=== PATIENT | female | born 1990 | race American Indian/Alaskan Native ===

== ENCOUNTER 2019-02-18 12:27 | Emergency (ER) | payer SELFPAY ==
[2019-02-18 12:52] VITALS: BP 117/54
--- NOTE | 2019-02-18 12:55 | Event Note ---
ED Screening Note Date of service: 02/18/19 Time: 12:49 ED Screening Note: This is a 28 y.o. F. that presents to the ER with nausea and vomiting 3-4 days. LMP 12/16/2018, A0 Reports unable to keep anything down. + urinary frequency, urgency, n/v - abdominal pain, chest pain, fever, chills, hematuria, and vaginal discharge This initial assessment/diagnostic orders/clinical plan/treatment(s) is/are subject to change based on patients health status, clinical progression and re-assessment by fellow clinical providers in the ED. Further treatment and workup at subsequent clinical providers discretion. Patient/guardian urged not to elope from the ED as their condition may be serious if not clinically assessed and managed. Initial orders include: Labs
[2019-02-18 13:45] LABS: Bacteria,Urine 3+ /HPF (Negative); Bilirubin,Urine NEG (Negative); Blood,Urine NEG (Negative); Color,Urine Amber (Yellow); Mucus,Urine 3+ /HPF; Urobilinogen,Urine < 2.0 mg/dL (<2.0)
[2019-02-18 13:50] LABS: HCG Qualitative,Urine Positive (Negative)
[2019-02-18 14:04] LABS: Hematocrit 41.2 % (30.3-42.9); Hemoglobin 13.6 gm/dl (10.1-14.3); Mean Corpuscular HGB Conc 33 % (30-34); Mean Corpuscular Volume 94 fl (79-97); Platelet Count 174 K/mm3 (140-440); Red Blood Count 4.38 M/mm3 (3.65-5.03); Red Cell Distribution Width 13.6 % (13.2-15.2)
[2019-02-18 15:07] LABS: Alanine Aminotransferase 37 units/L (7-56); Albumin 4.3 g/dL (3.9-5); BUN/Creatinine Ratio 17; Blood Urea Nitrogen 10 mg/dL (7-17); Hemolysis Index 47
== END 2019-02-18 16:38 | disposition left against medical advice (07) ==
LOC: ED 12:27
DX: R53.1 Weakness (principal); Z53.21 Procedure and treatment not carried out due to patient leaving prior to being seen by health care provider
CPT/HCPCS: 36415; 80053; 81001; 81025; 85027

== ENCOUNTER 2019-02-19 09:16 | Emergency (ER) | payer MEDICAID ==
[2019-02-19 10:31] LABS: Bacteria,Urine 1+ /HPF (Negative); Mucus,Urine 3+ /HPF
[2019-02-19 10:33] LABS: HCG Qualitative,Urine Positive (Negative)
[2019-02-19 10:43] LABS: Bilirubin,Urine NEG (Negative); Blood,Urine NEG (Negative); Color,Urine Amber (Yellow); Urobilinogen,Urine < 2.0 mg/dL (<2.0)
[2019-02-19] MEDS ORDERED: METOCLOPRAMIDE 10 MG TAB PO ONE (10:57)
--- NOTE | 2019-02-19 11:08 | Emergency Department Report ---
HPI - General Chief Complaint: Nausea/Vomiting/Diarrhea Time Seen by Provider: 02/19/19 10:36 - HPI HPI: 28-year-old Clarissa female presents to the emergency department with a complaint of a few weeks of nausea and vomiting. The patient also says that her last menstrual cycle was December 16 and therefore has not had a period in about 2 months. She has not taken any type of home test. She denies any vaginal bleeding, or discharge, but does have some dysuria. She complains of some lower abdominal and/or pelvic cramping pains. Prior to checking the patient for here today, the patient is . [facility]. She has not taken anything for her symptoms prior to presentation today. ED Past Medical Hx - Past Medical History Previous Medical History?: No - Surgical History Past Surgical History?: No - Social History Smoking Status: Never Smoker Substance Use Type: None - Medications Home Medications: Home Medications Medication Instructions Recorded Confirmed Last Taken Type Metoclopramide [Reglan] 10 mg PO TID PRN #20 tab 02/19/19 Unknown Rx Vit-Fe Fumar-FA [ 1 tab PO QDAY #30 tablet 02/19/19 Unknown Rx Vitamin] ED Review of Systems ROS: Stated complaint: VOMITING Other details as noted in HPI Comment: All other systems reviewed and negative Constitutional: denies: chills, fever Gastrointestinal: abdominal pain, nausea, vomiting Genitourinary: abnormal menses. denies: dysuria, discharge Musculoskeletal: denies: back pain, arthralgia Physical Exam - Physical Exam Vital Signs: Vital Signs 02/19/19 09:38 Temperature 99 F Pulse Rate 86 Respiratory 18 Rate Blood Pressure 136/97 O2 Sat by Pulse 97 Oximetry Physical Exam: GENERAL: The patient is well-developed well-nourished. HENT: Normocephalic. Atraumatic. Patient has moist mucous membranes. EYES: Extraocular motions are intact. NECK: Supple. Trachea is midline. CHEST/LUNGS: Clear to auscultation. There is no respiratory distress noted. HEART/CARDIOVASCULAR: Regular. There is no tachycardia. There is no murmur. ABDOMEN: Abdomen is soft, nontender. Patient has normal bowel sounds. There is no abdominal distention. SKIN: Skin is warm and dry. NEURO: The patient is awake, alert, and oriented. The patient is cooperative. The patient has no focal neurologic deficits. Normal speech. MUSCULOSKELETAL: There is no tenderness or deformity. There is no evidence of acute injury. ED Course Vital Signs 02/19/19 09:38 Temperature 99 F Pulse Rate 86 Respiratory 18 Rate Blood Pressure 136/97 O2 Sat by Pulse 97 Oximetry ED Medical Decision Making - Radiology Data Radiology results: report reviewed ultrasound shows a live intrauterine at about 8 weeks and 6 days. No obvious abnormalities. - Medical Decision Making This patient presents to the emergency department with some chronic nausea and vomiting, 2 months past due for her menstrual cycle. Positive test. Urinalysis is unremarkable. ultrasound shows live intrauterine at almost 9 weeks. She was given a dose of Reglan and upon reevaluation she has improvement in the nausea and vomiting. Able to pass an oral challenge. Has good [facility] [facility] follow-up with [facility]. Started on vitamins and given a prescription for Reglan. She will return to the ER with any worsening of her symptoms or any acute distress. - Differential Diagnosis , miscarriage, hyperemesis gravidarum, UTI Critical Care Time: No Critical care attestation.: If time is entered above; I have spent that time in minutes in the direct care of this critically ill patient, excluding procedure time. ED Disposition Clinical Impression: Qualifiers: Weeks of gestation: 8 weeks Qualified Code(s): Z3A.08 - 8 weeks gestation of Nausea & vomiting Qualifiers: Vomiting type: unspecified Vomiting Intractability: unspecified Qualified Cod e(s): R11.2 - Nausea with vomiting, unspecified Disposition: DC-01 TO HOME OR SELFCARE Is pt being admited?: No Condition: Stable Instructions: (ED), Acute Nausea and Vomiting (ED) Additional Instructions: Please follow-up with your [facility] in the next few days. Increase your oral rehydration. Return to the emergency Department with any worsening of your symptoms, development of vaginal bleeding or sharp pelvic pains, or with any acute distress. I am starting you on vitamins. Do not take any other medications unless prescribed or recommended by a physician. Prescriptions: Vit-Fe Fumar-FA [ Vitamin] 1 tab PO QDAY #30 tablet Metoclopramide [Reglan] 10 mg PO TID PRN #20 tab PRN Reason: Nausea Referrals: [facility] [Provider Group] - 2-3 Days Time of Disposition: 13:41
[2019-02-19 13:49] VITALS: BP 134/78
--- NOTE | 2019-02-21 07:57 | Ultrasound Report ---
ULTRASOUND OB LESS THAN 14 WEEKS FETUS ULTRASOUND OB TRANSVAGINAL HISTORY: Pelvic pain during COMPARISON: None. TECHNIQUE: Routine transabdominal OB ultrasound performed. FINDINGS: Uterus: Mildly enlarged measuring 11.3 x 8.0 x 9.3 cm. Gestational Sac: Well-defined oval shape and intrauterine in location. Yolk Sac: Normal in appearance. Fetus/Embryo: [place]-rump length of 2.2 cm, corresponding to an estimated gestational age of 8 weeks 6 days. Embryonic/ anatomy is too small for evaluation. Embryonic/ cardiac activity: 166bpm Placenta: Too small for evaluation. Amniotic fluid volume: Subjectively appropriate for gestational age. Ovaries: The right ovary is normal in size and appearance with normal blood flow, measuring 2.7 x 1. 0 x 2.8 cm. The left ovary is normal in size and appearance with normal blood flow, measuring 3.7 x 2.1 x 3.3 cm. Hypoechoic space-occupying mass in the left ovary with peripheral vascularity is most likely the corpus luteum. Additional findings: None. IMPRESSION Early live intrauterine . Signer Name: Clifton Toro Jr, MD Signed: 02/19/2019 12:46 PM Workstation Name: [id number]
--- NOTE | 2019-02-26 11:01 | Ultrasound Report ---
ULTRASOUND OB LESS THAN 14 WEEKS FETUS ULTRASOUND OB TRANSVAGINAL HISTORY: Pelvic pain during COMPARISON: None. TECHNIQUE: Routine transabdominal OB ultrasound performed. FINDINGS: Uterus: Mildly enlarged measuring 11.3 x 8.0 x 9.3 cm. Gestational Sac: Well-defined oval shape and intrauterine in location. Yolk Sac: Normal in appearance. Fetus/Embryo: [place]-rump length of 2.2 cm, corresponding to an estimated gestational age of 8 weeks 6 days. Embryonic/ anatomy is too small for evaluation. Embryonic/ cardiac activity: 166bpm Placenta: Too small for evaluation. Amniotic fluid volume: Subjectively appropriate for gestational age. Ovaries: The right ovary is normal in size and appearance with normal blood flow, measuring 2.7 x 1. 0 x 2.8 cm. The left ovary is normal in size and appearance with normal blood flow, measuring 3.7 x 2.1 x 3.3 cm. Hypoechoic space-occupying mass in the left ovary with peripheral vascularity is most likely the corpus luteum. Additional findings: None. IMPRESSION Early live intrauterine . Signer Name: Clifton Toro Jr, MD Signed: 02/19/2019 12:46 PM Workstation Name: [id number]
== END 2019-02-19 13:49 | disposition home or self-care (01) ==
LOC: ED 09:16
DX: O21.8 Other vomiting complicating pregnancy (principal); Z3A.08 8 weeks gestation of pregnancy
CPT/HCPCS: 36415; 76801; 76817; 81001; 81025; 84703

== ENCOUNTER 2019-09-22 17:41 | Observation (INO) | payer MEDICAID ==
[2019-09-22] MEDS ORDERED: DOCUSATE SODIUM 100 MG CAP PO PRN (23:09)
[2019-09-22] MEDS ORDERED: ACETAMINOPHEN 325 MG TAB PO PRN (23:09)
[2019-09-22] MEDS ORDERED: BUTORPHANOL 2 MG/1 ML INJ IV PRN (23:17)
--- NOTE | 2019-09-22 23:22 | History and Physical Report ---
History of Present Illness Date of examination: 09/22/19 Date of admission: 09/22/19 20:37 Chief complaint: Contractions History of present illness: 28 year old presents to L&D complaining of contractions every 2-3 minutes. Patient denies LOF or vaginal bleeding. Pt. reports active movement. Patient received care at [facility] but records are now available. LMP 12/19/2018. EDC 09/25/2019. 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 labs are as follows: O+, antibody screen negative, rubella immune, HIV negative, hepatitis B surface antigen negative, RPR nonreactive, gonorhea negative, chlamydia negative, trichomonas negative, 1 hour sugar test 94, GBS unknown. Past History Past Medical History: no pertinent history Past Surgical History: no surgical history [facility] History: abnormal PAP smear, chlamydia (history of chlamydia in the past, treated and cured), herpes (Patient denies lesions or prodromal symptoms and no lesions seen upon ). denies: gonorrhea, hepatitis B, hepatitis C, HIV, syphilis, trichomonas Family/Genetic History: diabetes, heart disease, other (arthritis, seizure disorder) Social history: lives with family, full code. denies: smoking, alcohol abuse, prescription drug abuse, IV drug use - Obstetrical History Expected Date of Delivery: 09/25/19 Actual Gestation: 39 Week(s) 4 Day(s) : 6 Para: 5 Hx # Term Pregnancies: 5 Number of Pregnancies: 0 Spontaneous Abortions: 0 Induced : 0 Number of Living Children: 5 Medications and Allergies Allergies Allergy/AdvReac Type Severity Reaction Status Date / Time No Known Allergies Allergy Unverified 02/18/19 12:30 Home Medications Medication Instructions Recorded Confirmed Last Taken Type Metoclopramide [Reglan] 10 mg PO TID PRN #20 tab 02/19/19 Unknown Rx Vit-Fe Fumar-FA [ 1 tab PO QDAY #30 tablet 02/19/19 Unknown Rx Vitamin] Active Meds: Active Medications Acetaminophen (Tylenol) 650 mg PO Q4H PRN PRN Reason: Pain MILD(1-3)/Fever >100.5/MANUEL Docusate Sodium (Colace) 100 mg PO Q12H PRN PRN Reason: Constipation Multivitamins/Iron/Calcium ( Vitamin) 1 each PO QDAY [facility], [facility] Review of Systems All systems: negative (contractions) - Vital Signs Vital signs: Vital Signs Pulse BP 87 133/88 09/22/19 17:55 09/22/19 17:55 Temp Pulse Resp BP Pulse Ox 98.4 F 75 18 103/56 09/22/19 22:46 09/22/19 22:50 09/22/19 22:46 09/22/19 22:50 - Physical Exam Abdomen: Positive: normal appearance, soft. Negative: distention, tenderness, guarding, rigidity Genitourinary (Female): Positive: normal external genitalia, normal perenium. Negative: perineal/vulvar lesions Vagina: Positive: normal moisture Uterus: Positive: enlarged. Negative: tender Anus/Rectum: Positive: normal perianal skin Extremities: Positive: normal - Obstetrical FHR: category 1 Cervical Dilatation: 3.5 Cervical Effacement Percentage: 50 station: -3 Uterine Contraction Pattern: Irregular Uterine Contraction Intensity: Mild Results All other labs normal. Assessment and Plan A: at 39 weeks, 4 days gestation. Rule out labor. Grand multipara. GBS unknown. P: Admit for 23 hour observation. EFM. Recheck cervix. Consuted with Dr. Pichardo re: this patient and she states OK to observe patient overnight.
[2019-09-23 06:35] VITALS: BP 99/54
--- NOTE | 2019-09-23 06:48 | Event Note ---
Date: 09/23/19 Contractions have spaced considerably. Patient denies leaking of fluid or vaginal bleeding. Patient reports active movement. SVE 3.5/60/-3. Patient to be discharged home. Advised patient to perform daily movement counting. Advised patient to follow up at [facility] office tomorrow 09/24/2019. Warning signs discussed with pt. Advised pt. to return promptly if labor or any warning signs. Patient voiced understanding of instructions.
--- NOTE | 2019-09-23 06:54 | Discharge Summary ---
Providers - Providers Date of Admission: 09/22/19 20:37 Date of discharge: 09/23/19 Attending physician: MOY BRIGHT MD Primary care physician: MOY BRIGHT MD Hospitalization Reason for admission: observation, other (R/O labor, grand multipara) Hospital course: Normal hospital course. Patient was found to be in false labor as, after observation, her contractions spaced and cervix was essentially unchanged upon exam this morning. Condition at discharge: Good Disposition: DC-01 TO HOME OR SELFCARE - Discharge Diagnoses (1) False labor after 37 weeks of gestation without delivery Status: Acute (2) Grand multipara Status: Acute Plan - Provider Discharge Summary Activity: routine Diet: routine Instructions: routine Additional instructions: Count movements daily. Follow up at [facility] in 1 day. Return promptly if signs of labor, decreased movement, leaking of fluid, or vaginal bleeding. - Follow up plan Follow up: MOY BRIGHT MD [Primary Care Provider] - 09/24/19
[2019-09-23] MEDS ORDERED: PRENATAL VIT27-FE FUMARATE-FOLIC ACID VIT TAB PO SCH (10:00)
[2019-09-23] MEDS ORDERED: valACYclovir 500 MG TAB PO SCH (10:00)
== END 2019-09-23 06:58 | disposition home or self-care (01) ==
LOC: APU 17:41 → TRG 17:41 → LD 20:37
PROVIDERS: ADMIT Obstetrics & Gynecology; ATTEND Obstetrics & Gynecology
DX: O47.1 False labor at or after 37 completed weeks of gestation (principal); O09.43 Supervision of pregnancy with grand multiparity, third trimester; Z3A.39 39 weeks gestation of pregnancy
CPT/HCPCS: G0378 ×2

== ENCOUNTER 2020-12-25 13:00 | Inpatient (IN) | payer MEDICAID ==
[2020-12-25] MEDS ORDERED: BUTORPHANOL 2 MG/1 ML INJ IV PRN (14:56)
[2020-12-25] MEDS ORDERED: TERBUTALINE 1 MG/1 ML INJ SUB-Q PRN (14:56)
[2020-12-25] MEDS ORDERED: fentaNYL 100 MCG/2 ML INJ IV PRN (14:56)
[2020-12-25] MEDS ORDERED: AMPICILLIN/NS 2 GM/100 ML 2 GM/100 ML BAG IV ONE (14:56)
[2020-12-25] MEDS ORDERED: LIDOCAINE (2%) 20 MG/1 ML VIAL 20 ML MDV INFILTRATI ONE (14:56)
[2020-12-25] MEDS ORDERED: CARBOPROST TROMETHAMINE 250 MCG/1 ML INJ IM PRN (14:56)
[2020-12-25] MEDS ORDERED: MINERAL OIL 30 ML ORAL LIQD PO PRN (14:56)
[2020-12-25] MEDS ORDERED: miSOPROStol 200 MCG TAB PR PRN (14:56)
[2020-12-25] MEDS ORDERED: ePHEDrine SULFATE 50 MG/1 ML INJ IV PRN ×2 (14:56→17:53)
[2020-12-25] MEDS ORDERED: OXYTOCIN 10 UNIT/1 ML INJ IM PRN (14:56)
[2020-12-25] MEDS ORDERED: METHYLERGONOVINE MALEATE 0.2 MG/ML VIAL IM PRN (14:56)
[2020-12-25] MEDS ORDERED: ACETAMINOPHEN 325 MG TAB PO PRN (14:56)
[2020-12-25] MEDS ORDERED: LOPERAMIDE 2 MG CAP PO PRN (14:56)
[2020-12-25] MEDS ORDERED: OXYTOCIN DRIP 30 UNITS/500 ML BAG IV SCH ×4 (15:00→19:00)
--- NOTE | 2020-12-25 15:02 | History and Physical Report ---
History of Present Illness Date of examination: 12/25/20 Date of admission: 12/25/2020 Chief complaint: Leaking of water from vagina; contractions History of present illness: 30 year old presents to L&D with complaint of leaking of clear water from vagina since 1:30 PM today. Patient also reports contractions. Patient received care from [facility] and records are available. LMP 03/24/2020. EDC 12/29/2020. significant for the following: gonorrhea treated during and cured but ANTONIO result not on chart (will request when office opens in the morning); GBS unknown, HSV 2 positive (has been on Valtrex suppression and patient denies lesions or prodromal symptoms); late entry to care and missed visits. labs are as follows: O+, antibody screen negative, rubella immune, hepatitis B surface antigen negative, HIV negative, RPR nonreactive, gonorrhea positive, chlamydia negative, trichomonas negative, AFP negative, GBS unknown, no sugar test result on chart. 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 denies: smoking, alcohol abuse, prescription drug abuse, IV drug use - Obstetrical History Expected Date of Delivery: 12/29/20 Actual Gestation: 39 Week(s) 3 Day(s) : 7 Para: 6 Hx # Term Pregnancies: 6 Number of Pregnancies: 0 Spontaneous Abortions: 0 Induced : 0 Number of Living Children: 6 Medications and Allergies Allergies Allergy/AdvReac Type Severity Reaction Status Date / Time No Known Allergies Allergy Verified 12/25/20 16:37 Home Medications Medication Instructions Recorded Confirmed Last Taken Type Metoclopramide [Reglan] 10 mg PO TID PRN #20 tab 02/19/19 10/06/19 10/05/19 Rx Vit-Fe Fumar-FA [ 1 tab PO QDAY #30 tablet 02/19/19 10/06/19 10/06/19 Rx Vitamin] 1 tab Active Meds: Active Medications Acetaminophen (Acetaminophen 325 Mg Tab) 650 mg PO Q4H PRN PRN Reason: Pain, Mild (1-3) Butorphanol Tartrate (Butorphanol 2 Mg/1 Ml Inj) 1 mg IV Q2H PRN PRN Reason: Pain, Moderate(4-6) LABOR PAIN Carboprost Tromethamine (Carboprost Tromethamine 250 Mcg/1 Ml Inj) 250 mcg IM ONCE PRN PRN Reason: Uterine Bleeding Ephedrine Sulfate (Ephedrine Sulfate 50 Mg/1 Ml Inj) 10 mg IV Q2M PRN PRN Reason: Hypotension Fentanyl (Fentanyl 100 Mcg/2 Ml Inj) 100 mcg IV Q2H PRN PRN Reason: Pain,Severe (7-10) LABOR PAIN Oxytocin/Sodium Chloride (Pitocin/Ns 30 Unit/500ml) 30 units in 500 mls @ 2 mls/hr IV TITR SABA; Protocol Lactated Ringer's (Lactated Ringers) 1,000 mls @ 125 mls/hr IV DIRECT SABA Oxytocin/Sodium Chloride (Pitocin/Ns 30 Unit/500ml) 30 units in 500 mls @ 40 mls/hr IV TITR SABA; Protocol Ampicillin Sodium (Ampicillin/Ns 2 Gm/100 Ml) 2 gm in 100 mls @ 100 mls/hr IV ONCE ONE; Protocol Stop: 12/25/20 15:55 Lidocaine (Lidocaine (2%) 20 Mg/1 Ml Vial 20 Ml Mdv) 20 ml INFILTRATI ONCE ONE Stop: 12/25/20 14:57 Loperamide HCl (Loperamide 2 Mg Cap) 2 mg PO ONCE PRN PRN Reason: give with Hemabate Methylergonovine Maleate (Methylergonovine Maleate 0.2 Mg/Ml Vial) 0.2 mg IM ONCE PRN PRN Reason: Uterine Bleeding Mineral Oil (Mineral Oil 30 Ml Oral Liqd) 30 ml PO QHS PRN PRN Reason: Constipation Misoprostol (Misoprostol 200 Mcg Tab) 800 mcg SC ONCE PRN PRN Reason: Uterine Bleeding Oxytocin (Oxytocin 10 Unit/1 Ml Inj) 10 unit IM ONCE PRN PRN Reason: Uterine Bleeding Terbutaline Sulfate (Terbutaline 1 Mg/1 Ml Inj) 0.25 mg SUB-Q ONCE PRN PRN Reason: Hyperstimulation/Hypertonicity Review of Systems All systems: negative (leaking of water, contractions) - Vital Signs Vital signs: Vital Signs Pulse BP 66 105/57 12/25/20 14:42 12/25/20 14:42 Temp Pulse Resp BP Pulse Ox 98.4 F 70 18 105/56 98 12/25/20 14:55 12/25/20 14:55 12/25/20 14:55 12/25/20 14:55 12/25/20 14:55 - Physical Exam Abdomen: Positive: normal appearance, soft. Negative: distention, tenderness, guarding, rigidity Genitourinary (Female): Positive: normal external genitalia, normal perenium. Negative: perineal/vulvar lesions (no lesions noted on careful exam with bright light upon admission) Vagina: Positive: other (clear fluid seen leaking from vagina) Uterus: Positive: enlarged. Negative: tender Anus/Rectum: Positive: normal perianal skin Extremities: Positive: normal. Negative: tenderness - Obstetrical FHR: category 2 Uterine Contraction Monitor Mode: External Cervical Dilatation: 4 Cervical Effacement Percentage: 50 station: -2 Uterine Contraction Pattern: Irregular Uterine Contraction Intensity: Mild Results Result Diagrams: 12/25/20 15:50 All other labs normal. Assessment and Plan A: at 39 weeks, 3 days gestation. Spontaneous rupture of membranes. Early labor. GBS unknown. HSV 2 positive (on Valtrex suppression; no lesions or prodromal symptoms). P: Admit. EFM. GBS prophylaxis. Continue Valtrex suppression of HSV. Pitocin augmentation of labor. Lateral positioning.
[2020-12-25] MEDS: LACTATED RINGERS 1,000 ML IV SCH (15:57)
[2020-12-25 16:42] LABS: Hematocrit 33.5 % (30.3-42.9); Mean Corpuscular HGB Conc 33 % (30-34); Mean Corpuscular Volume 83 fl (79-97); Platelet Count 161 K/mm3 (140-440); Red Blood Count 4.06 M/mm3 (3.65-5.03)
[2020-12-25] MEDS: valACYclovir 500 MG TAB PO SCH (17:11)
[2020-12-25] MEDS ORDERED: NALOXONE 2 MG/2 ML INJ IV PRN (17:53)
--- NOTE | 2020-12-25 17:53 | Anesthesia Consultation ---
Anesthesia Consult and Med Hx Date of service: 12/25/20 - Airway Anesthetic Teeth Evaluation: Good ROM Head & Neck: Adequate Mental/Hyoid Distance: Adequate Mallampati Class: Class II Intubation Access Assessment: Probably Good - Pulmonary Exam CTA: Yes - Cardiac Exam Cardiac Exam: RRR - Pre-Operative Health Status ASA Pre-Surgery Classification: ASA2 Proposed Anesthetic Plan: Epidural - Pulmonary Hx Asthma: No COPD: No Hx Pneumonia: No - Cardiovascular System Hx Hypertension: No - Central Nervous System Hx Seizures: No Hx Psychiatric Problems: No - Endocrine Hx Renal Disease: No Hx End Stage Renal Disease: No Hx Hypothyroidism: No Hx Hyperthyroidism: No - Hematic Hx Anemia: No Hx Sickle Cell Disease: No - Other Systems Hx Alcohol Use: No
[2020-12-25] MEDS ORDERED: ONDANSETRON 4 MG/2 ML INJ ONE (17:54)
[2020-12-25] MEDS ORDERED: ONDANSETRON 4 MG/2 ML INJ IV PRN (18:00)
[2020-12-25] MEDS ORDERED: fentaNYL-BUPIV 2 MCG/ML-0.125% 200 MCG/100 ML BAG EPIDURAL SCH (18:00)
--- NOTE | 2020-12-25 18:14 | Event Note ---
Date: 12/25/20 Patient received epidural and immediately after receiving epidural states she does not feel well. Nauseated and began vomiting. Normal BPs. Patient reported SOB and anxiety. Denies chest pain. Oxygen applied per face mask. O2 sat 91% to 97%. Zofran given for nausea. Prolonged FHR deceleration noted into 80s. FSE applied. SVE 4/50/-3. Terbutaline given SQ (patient was not receiving Pitocin but was tayla spontaneously). Position change instituted. IV fluid bolus of Lactated Ringers solution given. Attempted phone contact with MD several times for stat section but unable to reach. Left message for MD that we needed him stat. Subsequently reached MD and MD in route to hospital. Called any OB in house to assist since FHR was not responsive to interventions and still in 80s. Dr. Recio responded and came to do stat section while our MD was en route. Informed patient and significant other of need to expedite delivery due to FHR tracing.
[2020-12-25] MEDS ORDERED: OXYTOCIN 10 UNIT/1 ML INJ ONE (18:24)
[2020-12-25] MEDS ORDERED: FAMOTIDINE 20 MG/2 ML INJ IV ONE (18:36)
[2020-12-25] MEDS ORDERED: BICITRA ORAL LIQD 30ML PO ONE (18:36)
[2020-12-25] MEDS ORDERED: METOCLOPRAMIDE 10 MG/2 ML INJ IV ONE (18:36)
[2020-12-25] MEDS ORDERED: WITCH HAZEL/ GLYCERIN PAD TP PRN (18:39)
[2020-12-25] MEDS ORDERED: LANOLIN/ZINC/DIMETHICONE (LANSINOH) 7 GM TP PRN (18:39)
[2020-12-25] MEDS ORDERED: KETOROLAC 30 MG/1 ML INJ IV PRN (18:39)
[2020-12-25] MEDS ORDERED: NALOXONE 0.4 MG/1 ML INJ IV PRN (18:39)
[2020-12-25] MEDS ORDERED: LACTATED RINGERS 1,000 ML IV SCH (18:45)
[2020-12-25] MEDS ORDERED: LACTATED RINGERS 0 ML ONE (18:49)
[2020-12-25] MEDS ORDERED: BUPIVACAINE/PF (0.25%) 2.5 MG/ML 30 ML VIAL INFILTRATI ONE (18:50)
[2020-12-25] MEDS ORDERED: dexAMETHasone 20 MG/5 ML VIAL ONE (18:50)
[2020-12-25] MEDS ORDERED: AMPICILLIN/NS 1 GM/50 ML 1 GM/50 ML BAG IV SCH (19:00)
[2020-12-25] MEDS ORDERED: ceFAZolin/Water 2 GM/20 ML 2 GM/20 ML SYRINGE IV NR (19:00)
--- NOTE | 2020-12-25 19:11 | Operative Report ---
Operative Report Operative Report: Date of procedure: 12/25/2020 Pre-operative diagnosis: 39 weeks gestation Prolonged bradycardia Post-operative diagnosis: Same Procedure name(s): Stat primary low transverse section via Pfannenstiel skin incision Surgeon: Dr. Recio [employer] And [employer] Coach: LEVI Anesthesia: Epidural QBL: 510ml Urine output: 100 mL of clear urine out at end of procedure Fluids: 250 mL Findings: Liveborn male 7 pounds 0 ounces Apgars of 8 and 9 at 1 and 5 minutes Grossly normal fallopian tubes and ovaries bilaterally Indications: I was called urgently to labor and delivery due to prolonged bradycardia. Report that was given was that patient had been consecutively with heart rate in the 80s for several minutes. Just prior to section I was told that the heart rate was in the 1 teens. Decision was made to proceed with stat primary section due to prolonged bradycardia. Patient provider was in route to the hospital. Provider did arrive as skin was being closed. Procedure: Patient was taking to the operating room. Patient was then prepped and draped in sterile fashion after anesthesia was found to be adequate. A low transverse skin incision was made with the scalpel and carried down to the underlying layer of fascia with the Bovie. The fascia was then incised in the midline and this incision was extended bilaterally with the scalpel. T. The rectus muscles were then bluntly divided in the midline. The peritoneum was identified and entered into with blunt dissection. A lower transverse uterine incision was made with the scalpel and extended bilaterally with blunt dissection. Artificial rupture of membranes was performed yielding [clear amniotic fluid]. The infant's head was then delivered atraumatically. The anterior shoulder and rest of infant delivered without difficulty. The umbilical cord was clamped x2. The cord was cut. The infant was then placed in sterile bassinet. [The cord blood was collected.] The placenta was manually extracted in its entirety. The uterus was exteriorized and cleared of all clots and debris. The uterine incision was closed using 0 Vicryl in a running locking fashion. A second imbricating layer of the same suture was then created. The posterior cul-de-sac was copiously irrigated. The uterus was returned to the abdomen. He will blast was placed along the uterine incision with excellent hemostasis noted. The gutters were also irrigated. The anterior rectus muscles were reapproximated using 3-0 Vicryl. The anterior rectus fascia was reapproximated using 0 Vicryl in a running fashion. The subcuticular fat was reapproximated using 2-0 Vicryl in a running fashion. The skin was reapproximated with 4-0 Monocryl in a subcuticular stitch. The patient tolerated the procedure well. Sponge lap and needle counts were all correct x3. Patient was taken to the recovery room awake and in stable condition.
--- NOTE | 2020-12-25 19:28 | Progress Note ---
Labor Epidural - Labor Epidural Start Time: 17:39 Stop Time: 17:45 Performed by:: CHELO AYALA Procedure: Patient is requesting epidural for labor pain. H&P, and labs reviewed. Procedure explained, questions answered, consent obtained. Patient in sitting position with blood pressure cuff and pulse ox on and working. Timeout performed immediately before start of procedure. Sterile chlorahexadine 0.5% prep/drape. 3 mL 1% lidocaine skin wheal at L[3]-L[4]. 18-gauge appbackr epidural needle advanced to [id number] with saline at 9 cm. Initially no return of fluid, and then patient shifted position and clear free flowing fluid started. Epidural catheter advanced to 13 cm, negative aspiration for blood test dose 1 ml 1.5% lidocaine with epinephrine given and confirmed intrathecal placement with patient numb legs. 5 mcg dexmedetomidine given. Sterile steri-strips and tegaderm applied, followed by tape reinforcement. Patient tolerated procedure well.
--- NOTE | 2020-12-25 19:29 | Progress Note ---
Regional Anesthesia Block - Regional Anesthesia Block Start Time: 18:10 Stop Time: 18:15 Performed By:: CHELO AYALA Procedure: U/S guided bilateral tap block performed for post-operative pain requested by Dr. Recio. H&P & labs reviewed. Procedure explained, questions answered, consent obtained. Patient in the supine position with ekg, blood pressure cuff and pulse ox on and working in PACU. Timeout performed immediately before start of procedure. Probe placed in the mid-axillary line and the external oblique, internal oblique, and transverse abdominus muscles identified. Skin was cleansed with chlorahexadine 0.5% and allowed to dry. A 4" 20 G Cortez echogenic needle was advanced in plane until the tip was in the fascial plane between the internal oblique and the transverse abdominus. After negative aspiration 35 ml/side of [30 ml 0.5% Bupivacaine], [10 mg dexamethasone], and [40 ml sterile saline] was injected in 5 ml increments with negative aspiration in between. Patient tolerated procedure well.
[2020-12-25] MEDS: MORPHINE 4 MG/1 ML INJ IV PRN (23:19)
[2020-12-26] MEDS: ceFAZolin/NS 1 GM/50 ML 1 GM/50 ML BAG IV SCH ×2 (02:03→10:06)
[2020-12-26] MEDS: LACTATED RINGERS 1,000 ML IV SCH (02:03)
[2020-12-26] MEDS: valACYclovir 500 MG TAB PO SCH ×3 (02:03→22:40)
[2020-12-26 08:26] LABS: Hematocrit 29.2 % (30.3-42.9); Hemoglobin 9.5 gm/dl (10.1-14.3)
--- NOTE | 2020-12-26 10:04 | Progress Note ---
Assessment and Plan nl pp exam. pt doing well. Subjective - Subjective Date of service: 12/26/20 Principal diagnosis: term preg, labor ,fht decelerations. Interval history: pt underwent c/s. pp pt is doing well. Patient reports: appetite normal, voiding normally : doing well Objective - Vital Signs Latest vital signs: Vital Signs Temp Pulse Resp BP BP Pulse Ox Pulse Ox 12/26/20 07:45 100 12/26/20 07:39 98.4 F 77 20 110/65 98 12/26/20 05:32 98.0 F 76 20 114/86 97 12/26/20 01:56 16 12/26/20 00:22 97.9 F 69 20 116/61 98 12/25/20 23:19 18 12/25/20 20:45 100 12/25/20 20:10 96 H 12 105/55 100 12/25/20 19:55 72 14 92/44 100 12/25/20 19:40 78 14 99/57 99 12/25/20 19:25 84 15 114/68 97 12/25/20 19:10 90 13 115/69 97 12/25/20 19:05 97 H 17 90/52 98 12/25/20 19:00 97.8 F 106 H 16 118/71 99 12/25/20 18:00 53 L 91 12/25/20 17:59 51 L 78 L 12/25/20 17:52 88 101/65 12/25/20 17:46 116 H 97 12/25/20 17:41 107 H 100 12/25/20 17:36 90 99 12/25/20 17:07 89 115/85 12/25/20 16:37 88 119/64 12/25/20 16:30 28 L 20 59 L 12/25/20 16:29 76 82 L 12/25/20 16:21 85 91 12/25/20 16:18 62 100 12/25/20 16:13 76 99 12/25/20 16:08 71 97 12/25/20 16:03 71 100 12/25/20 16:01 79 91 12/25/20 15:58 67 100 12/25/20 15:55 97 12/25/20 15:54 81 90 12/25/20 15:53 63 100 12/25/20 15:48 68 100 12/25/20 15:43 69 100 12/25/20 15:38 68 100 12/25/20 15:33 71 98 12/25/20 15:28 67 99 12/25/20 15:23 65 99 12/25/20 15:18 78 97 12/25/20 15:16 98.2 F 64 20 111/67 12/25/20 14:55 98.4 F 71 18 105/56 98 12/25/20 14:50 72 97 12/25/20 14:45 62 98 12/25/20 14:42 66 105/57 Intake and Output 12/25/20 12/26/20 12/26/20 23:59 07:59 15:59 Intake Total 1250 720 120 Output Total 250 1400 600 Balance 1000 -680 -480 Intake: IV 1250 Lactated Ringers 1,000 ml 1000 @ 125 mls/hr IV DIRECT SABA Rx#:[id number] Oral 720 120 Output: Urine 250 1400 600 Indwelling Catheter 1400 Uretheral (Son) 100 Void 600 Other: Total, Intake Amount 240 120 Total, Output Amount 1000 600 Estimated Blood Loss 510 - Exam Breasts: Present: normal Abdomen: Present: normal appearance, soft, other (wound healing well.) Uterus: Present: normal, firm Extremities: Present: normal Deep Tendon Reflex Grade: Normal +2 Incision: Present: normal - Labs Labs: Abnormal lab results 12/25/20 12/25/20 12/26/20 Range/Units 14:18 15:50 07:44 Hgb 9.5 L (10.1-14.3) gm/dl Hct 29.2 L (30.3-42.9) % MCH 27 L (28-32) pg RDW 17.0 H (13.2-15.2) % Membranes Rupture Positive A (Negative)
[2020-12-26] MEDS: MORPHINE 4 MG/1 ML INJ IV PRN (10:06)
[2020-12-26] MEDS ORDERED: HYDROcodone/ACETAMINOPHEN 5-325 MG TAB PO PRN (12:41)
--- NOTE | 2020-12-26 15:50 | Post Anesthesia Evaluation ---
- Post Anesthesia Evaluation Patient Participated: Yes Airway Patent: Yes Stable Respiratory Function: Yes Nausea/Vomiting: No Temp > 96.8F: Yes Pain Manageable: Yes Adequeate Hydration: Yes Anesthesia Complications: No Block Receding Appropriately: Yes
[2020-12-27] MEDS: IBUPROFEN 600 MG TAB PO PRN ×2 (05:49→12:23)
[2020-12-27] MEDS ORDERED: TETANUS,DIPH,PERTUSS(ACELL) VACCINE 0.5 ML SYRINGE IM ONE (06:00)
[2020-12-27] MEDS: valACYclovir 500 MG TAB PO SCH ×2 (10:15→22:02)
--- NOTE | 2020-12-27 10:25 | Progress Note ---
Assessment and Plan A: /postop day 2 S/P primary LTCS. Anemia. P: Supplement with iron. Encouraged ambulation. Plan discharge home later today or tomorrow AM. Subjective - Subjective Date of service: 12/27/20 Principal diagnosis: /postop day 2 S/P primary LTCS Interval history: Doing well. Patient reports: appetite normal, voiding normally, pain well controlled, flatus, ambulating normally, no dizzy ambulation, no nauseated Ada: doing well Objective - Vital Signs Latest vital signs: Vital Signs Temp Pulse Resp BP Pulse Ox Pulse Ox 12/27/20 08:25 100 12/27/20 07:49 98.2 F 62 16 106/71 100 12/27/20 01:54 98.3 F 68 20 112/60 99 12/26/20 20:00 100 12/26/20 16:05 98.3 F 69 20 115/68 100 12/26/20 11:55 97.8 F 64 16 120/65 97 Intake and Output 12/26/20 12/27/20 12/27/20 23:59 07:59 15:59 Intake Total 680 480 Output Total 100 Balance 580 480 Intake: Oral 680 480 Output: Urine 100 Void 100 Other: Total, Intake Amount 240 240 Total, Output Amount 100 # Voids Void 1 1 - Exam Cardiovascular: Present: Regular rate Lungs: Present: Clear to auscultation Abdomen: Present: normal appearance, soft, normal bowel sounds. Absent: distention, tenderness, guarding, rigidity Uterus: Present: normal, firm, fundal height below umbilicus. Absent: bogginess, tenderness Extremities: Absent: tenderness Incision: Present: dry, dressed
[2020-12-27] MEDS: FERROUS SULFATE 325 MG TAB PO SCH (12:23)
--- NOTE | 2020-12-28 06:47 | Event Note ---
Date: 12/28/20 Patient reports headache this morning. Is used to drinking coffee in the mornings and has not had any for several days. Will try a cup of coffee. If this does not help will try pain medication. Anesthesia to see patient if no relief from these measures.
--- NOTE | 2020-12-28 09:47 | Progress Note ---
Assessment and Plan A: S/P primary LTCS Asymptomatic anemia P: D/C home per pt request Continue Fe as prescribed Subjective - Subjective Date of service: 12/28/20 Principal diagnosis: /postop day 3 S/P primary LTCS Patient reports: appetite normal, voiding normally, pain well controlled, flatus, ambulating normally, other (Pt denies headache or dizzines) : doing well, nursing well Objective - Vital Signs Latest vital signs: Vital Signs Temp Pulse Resp BP Pulse Ox Pulse Ox 12/28/20 08:30 100 12/28/20 08:04 98.2 F 66 18 126/73 100 12/28/20 00:02 98.2 F 60 20 110/61 99 12/27/20 22:45 99 12/27/20 20:05 99 12/27/20 16:27 97.3 F L 61 20 122/79 100 Intake and Output 12/27/20 12/28/20 12/28/20 22:59 06:59 14:59 Intake Total 480 Balance 480 Intake: Oral 480 Other: Total, Intake Amount 240 # Voids Void 1 - Exam Breasts: Present: normal Abdomen: Present: normal appearance, soft, normal bowel sounds Vulva: both: normal Uterus: Present: normal, firm, fundal height below umbilicus Extremities: Present: normal Incision: Present: normal, dry, intact
--- NOTE | 2020-12-28 09:53 | Discharge Summary ---
Providers - Providers Date of Admission: 12/25/20 18:37 Date of discharge: 12/28/20 Attending physician: KENROY WATSON MD Primary care physician: KENROY WATSON MD Hospitalization Reason for admission: active labor, IUP at term Delivery: Procedure: primary low transverse Episiotomy: none Laceration: none Incision: normal, dry, intact Other procedures: none complications: other (asymptomatic anemia) Discharge diagnosis: IUP at term delivered [place] baby: male Hospital course: Pt was admitted in labor and had an emergency primary LTCS r/t NRFHT. She had an uncomplicated pp stay. See H&P, delivery summary, and pp notes. Condition at discharge: Stable Disposition: DC-01 TO HOME OR SELFCARE Plan - Provider Discharge Summary Activity: routine, no sex for 6 weeks, no heavy lifting 4 weeks, no strenuous exercise Diet: routine Instructions: routine Additional instructions: [] Smoking cessation referral if applicable(refer to patient education folder for contact #) [] Refer to [facility] Booklet Call your doctor immediately for: * Fever > 100.5 * Heavy vaginal bleeding ( >1 pad per hour) * Severe persistent headache * Shortness of breath * Reddened, hot, painful area to leg or breast * Drainage or odor from incision. * Keep incision clean and dry at all times and follow doctor's instructions regarding bathing/showering - Follow up plan Follow up: KENROY WATSON MD [Primary Care Provider] - 7 Days Forms: [facility] Discharge Summary
[2020-12-28] MEDS: FERROUS SULFATE 325 MG TAB PO SCH (10:30)
[2020-12-28] MEDS: valACYclovir 500 MG TAB PO SCH (10:31)
[2020-12-28] MEDS: IBUPROFEN 600 MG TAB PO PRN (10:31)
[2020-12-28 11:24] VITALS: BP 131/76
== END 2020-12-28 12:00 | disposition home or self-care (01) | DRG 765 ==
LOC: TRG 13:00 → APU 13:01 → TRG 14:56 → LD 15:10 → OB 20:30
PROC: 10D00Z1 Extraction of Products of Conception, Low, Open Approach (ICD-10-PCS; principal; 2020-12-25)
PROC: 3E0T3BZ Introduction of Anesthetic Agent into Peripheral Nerves and Plexi, Percutaneous Approach (ICD-10-PCS; 2020-12-26)
DX: O76 Abnormality in fetal heart rate and rhythm complicating labor and delivery (principal); O98.52 Other viral diseases complicating childbirth; O42.02 Full-term premature rupture of membranes, onset of labor within 24 hours of rupture; Z20.822 Contact with and (suspected) exposure to COVID-19; B00.9 Herpesviral infection, unspecified; O90.81 Anemia of the puerperium; Z3A.39 39 weeks gestation of pregnancy; Z37.0 Single live birth; Z83.3 Family history of diabetes mellitus; Z82.49 Family history of ischemic heart disease and other diseases of the circulatory system; Z82.61 Family history of arthritis; Z82.0 Family history of epilepsy and other diseases of the nervous system
CPT/HCPCS: 36415; 83036; 84112; 85014; 85018; 85027; 86592; 86850; 86900; 86901; 88307; G0378; A6250; J0290; J0690; J1100; J1885; J2270; J2590; J3105; J7120; U0003

== ENCOUNTER 2021-12-21 07:33 | Emergency (ER) | payer MEDICAID ==
--- NOTE | 2021-12-21 08:22 | Emergency Department Report ---
ED Female HPI - General Stated complaint: 3 MONTH /BLEEDING Time Seen by Provider: 12/21/21 08:19 - Related Data Previous Rx's Medication Instructions Recorded Last Taken Type Metoclopramide [Reglan] 10 mg PO TID PRN #20 tab 02/19/19 12/17/20 Rx Vit-Fe Fumar-FA [ 1 tab PO QDAY #30 tablet 02/19/19 10/06/19 Rx Vitamin] 1 tab Ferrous Sulfate [Feosol 325 MG tab] 325 mg PO QDAY #90 tablet 12/28/20 Unknown Rx Ibuprofen [Motrin 800 MG tab] 800 mg PO Q8HR PRN #30 tablet 12/28/20 Unknown Rx oxyCODONE /ACETAMINOPHEN [Percocet 1 tab PO Q6HR PRN #30 tablet 12/28/20 Unknown Rx 5/325] Amoxicillin [Trimox CAP] 500 mg PO BID #20 capsule 12/21/21 Unknown Rx Allergies Allergy/AdvReac Type Severity Reaction Status Date / Time No Known Allergies Allergy Verified 12/25/20 16:37 ED Review of Systems ROS: Stated complaint: 3 MONTH /BLEEDING Other details as noted in HPI Comment: All other systems reviewed and negative ED Past Medical Hx - Past Medical History Previous Medical History?: No Hx Hypertension: No Hx Congestive Heart Failure: No Hx Diabetes: No Hx Deep Vein Thrombosis: No Hx Renal Disease: No Hx Sickle Cell Disease: No Hx Seizures: No Hx Asthma: No Hx COPD: No Hx HIV: No - Surgical History Past Surgical History?: No - Family History Family history: no significant - Social History Smoking Status: Never Smoker Substance Use Type: None - Medications Home Medications: Home Medications Medication Instructions Recorded Confirmed Last Taken Type Metoclopramide [Reglan] 10 mg PO TID PRN #20 tab 02/19/19 12/25/20 12/17/20 Rx Vit-Fe Fumar-FA [ 1 tab PO QDAY #30 tablet 02/19/19 12/25/20 10/06/19 Rx Vitamin] 1 tab Ferrous Sulfate [Feosol 325 MG tab] 325 mg PO QDAY #90 tablet 12/28/20 Unknown Rx Ibuprofen [Motrin 800 MG tab] 800 mg PO Q8HR PRN #30 tablet 12/28/20 Unknown Rx oxyCODONE /ACETAMINOPHEN [Percocet 1 tab PO Q6HR PRN #30 tablet 12/28/20 Unknown Rx 5/325] Amoxicillin [Trimox CAP] 500 mg PO BID #20 capsule 12/21/21 Unknown Rx ED Physical Exam - General General appearance: alert, in no apparent distress - Head Head exam: Present: atraumatic, normocephalic - Eye Eye exam: Present: normal appearance - ENT ENT exam: Present: mucous membranes moist - Neck Neck exam: Present: normal inspection - Respiratory Respiratory exam: Present: normal lung sounds bilaterally. Absent: respiratory distress - Cardiovascular Cardiovascular Exam: Present: regular rate, normal rhythm. Absent: systolic murmur, diastolic murmur, rubs, gallop - GI/Abdominal GI/Abdominal exam: Present: soft, normal bowel sounds - Extremities Exam Extremities exam: Present: normal inspection - Back Exam Back exam: Present: normal inspection - Neurological Exam Neurological exam: Present: alert, oriented X3 - Psychiatric Psychiatric exam: Present: normal affect, normal mood - Skin Skin exam: Present: warm, dry, intact, normal color. Absent: rash ED Course Vital Signs 12/21/21 08:17 Temperature 98.9 F Pulse Rate 73 Respiratory 14 Rate Blood Pressure 115/69 [Right] O2 Sat by Pulse 100 Oximetry ED Medical Decision Making - Lab Data Result diagrams: 12/21/21 08:57 12/21/21 08:57 - Medical Decision Making Labs 12/21/21 12/21/21 12/21/21 08:19 08:57 08:57 WBC 5.0 RBC 4.60 Hgb 11.5 Hct 36.9 MCV 80 MCH 25 L MCHC 31 RDW 17.4 H Plt Count 193 Sodium 136 L Potassium 4.2 Chloride 104.6 Carbon Dioxide 23 Anion Gap 13 BUN 7 Creatinine 0.5 L Estimated GFR > 60 BUN/Creatinine Ratio 14 Glucose 86 Calcium 8.8 HCG, Quant Urine Color Yellow Urine Turbidity Cloudy Urine pH 6.0 Ur Specific [place] 1.015 Urine Protein 30 mg/dl Urine Glucose (UA) Negative Urine Ketones Negative Urine Blood Negative Urine Nitrite Positive Ur Reducing Substances Not Reportable Urine Bilirubin Negative Urine Ictotest Not Reportable Urine Urobilinogen 4.0 Ur Leukocyte Esterase 3+ Urine WBC (Auto) 26.0 H Urine RBC (Auto) 1.0 U Epithel Cells (Auto) 30.0 H Urine Bacteria (Auto) 2+ Urine Mucus 1+ 12/21/21 08:57 WBC RBC Hgb Hct MCV MCH MCHC RDW Plt Count Sodium Potassium Chloride Carbon Dioxide Anion Gap BUN Creatinine Estimated GFR BUN/Creatinine Ratio Glucose Calcium HCG, Quant 97207 H Urine Color Urine Turbidity Urine pH Ur Specific [place] Urine Protein Urine Glucose (UA) Urine Ketones Urine Blood Urine Nitrite Ur Reducing Substances Urine Bilirubin Urine Ictotest Urine Urobilinogen Ur Leukocyte Esterase Urine WBC (Auto) Urine RBC (Auto) U Epithel Cells (Auto) Urine Bacteria (Auto) Urine Mucus Vital Signs 12/21/21 08:17 Temperature 98.9 F Pulse Rate 73 Respiratory 14 Rate Blood Pressure 115/69 [Right] O2 Sat by Pulse 100 Oximetry Critical care attestation.: If time is entered above; I have spent that time in minutes in the direct care of this critically ill patient, excluding procedure time. ED Disposition Clinical Impression: UTI (urinary tract infection), Disposition: HOME / SELF CARE / HOMELESS Is pt being admited?: No Does the pt Need Aspirin: No Condition: Stable Instructions: Urinary Tract Infection, Adult, [id number] Additional Instructions: MED ORDERED TODAY SEE OBGYN IN AM SCHEDULED TYLENOL FOR PAIN Referrals: BREANA HERNANDEZ MD [Staff Physician] - 3-5 Days Forms: Accompanied Note, Work/School Release Form(ED) Time of Disposition: 10:23
[2021-12-21 08:23] VITALS: BP 115/69
[2021-12-21 08:44] LABS: Bacteria,Urine 2+ /HPF (Negative); Mucus,Urine 1+ /HPF
[2021-12-21 09:10] LABS: Hematocrit 36.9 % (30.3-42.9); Hemoglobin 11.5 gm/dl (10.1-14.3); Mean Corpuscular HGB Conc 31 % (30-34); Mean Corpuscular Volume 80 fl (79-97); Platelet Count 193 K/mm3 (140-440); Red Cell Distribution Width 17.4 % (13.2-15.2)
[2021-12-21 09:30] LABS: Blood Urea Nitrogen 7 mg/dL (7-17); Calcium 8.8 mg/dL (8.4-10.2); Hemolysis Index 4
[2021-12-21 09:31] LABS: BUN/Creatinine Ratio 14
[2021-12-21 09:35] LABS: Color,Urine Yellow (Yellow)
[2021-12-21 09:36] LABS: Bilirubin,Urine Negative (Negative); Blood,Urine Negative (Negative)
[2021-12-21] MEDS ORDERED: LIDOCAINE-MPF (1%) 10 MG/1 ML VIAL 5 ML INFILTRATI ONE (10:18)
== END 2021-12-21 11:14 | disposition home or self-care (01) ==
LOC: ED 07:33
DX: O23.40 Unspecified infection of urinary tract in pregnancy, unspecified trimester (principal); Z3A.01 Less than 8 weeks gestation of pregnancy
CPT/HCPCS: 36415; 80048; 81001; 84702; 85027; 87086; 96372; 99283; J0696; J3490